=== PATIENT | male | born 1965 | race Caucasian/White ===

== ENCOUNTER 2019-11-16 15:03 | Observation (INO) | payer BC ==
[2019-11-16] MEDS ORDERED: SODIUM CHLORIDE 0.9% 2,000 ML IV STA (15:30)
[2019-11-16] MEDS ORDERED: LOPERAMIDE 2 MG CAP PO STA (15:34)
--- NOTE | 2019-11-16 15:42 | ED ---
General Adult HPI - General Chief complaint: Recheck/Abnormal Lab/Rx Stated complaint: SOB, syncope, Dehydration Time Seen by Provider: 11/16/19 15:16 Source: patient Mode of arrival: wheelchair Limitations: no limitations - History of Present Illness Initial comments: Patient is a 54-year-old male with history of Crohn's presenting to the emergency department with a chief complaint of diarrhea and dehydration. Patient reports a recent cosmetic procedure about 4 days ago and the following day he developed continuous diarrhea. He states this is more than his usual secondary to the Crohn's. Patient reports watery diarrhea with no color. He spoke to GI doctor who gave him Flagyl and Cipro. Patient is currently taking the medication with no improvement in symptoms. Patient had a total colectomy about 25 years ago so he does not retain fluids very well. She reports dehydration yesterday went to another ED where he was given fluids and disc harged. Patient reports the symptoms are exactly the same today denies any night sweats or chills. Denies hematuria, hematochezia or melena. Denies night sweats or chills. Denies recent international travels . He states that he has an ongoing Crohn's flareup for the last 10 years. - Related Data Allergies Allergy/AdvReac Type Severity Reaction Status Date / Time No Known Allergies Allergy Verified 11/16/19 15:04 Review of Systems ROS Statement: Those systems with pertinent positive or pertinent negative responses have been documented in the HPI. ROS Other: All systems not noted in ROS Statement are negative. Past Medical History Additional Past Medical History / Comment(s): ulcerative colitis, crohns, prostate cancer History of Any Multi-Drug Resistant Organisms: None Reported Past Surgical History: Prostate Surgery Additional Past Surgical History / Comment(s): collectomy, ileoanal pouch Past Psychological History: No Psychological Hx Reported Smoking Status: Never smoker Past Alcohol Use History: None Reported Past Drug Use History: None Reported General Exam Limitations: no limitations General appearance: alert, in no apparent distress Head exam: Present: atraumatic, normocephalic, normal inspection Eye exam: Present: normal appearance Pupils: Present: normal accommodation ENT exam: Present: normal exam, normal oropharynx, mucous membranes dry, TM's normal bilaterally, normal external ear exam Neck exam: Present: normal inspection Respiratory exam: Present: normal lung sounds bilaterally Cardiovascular Exam: Present: regular rate, normal rhythm, normal heart sounds GI/Abdominal exam: Present: soft. Absent: distended, tenderness Extremities exam: Present: normal inspection, full ROM Back exam: Present: normal inspection, full ROM Neurological exam: Present: alert, oriented X3 Psychiatric exam: Present: normal affect, normal mood Skin exam: Present: warm, dry, intact, normal color Course Vital Signs 11/16/19 11/16/19 15:05 16:56 Temperature 97.4 F L Pulse Rate 68 105 H Respiratory 18 Rate Blood Pressure 116/78 129/116 O2 Sat by Pulse 97 95 Oximetry Medical Decision Making - Medical Decision Making Patient is 54-year-old male with history of Crohn's presenting to emergency department with a chief complaint of abdominal pain. Patient had a colectomy so he is very prone to dehydration. He has profuse diarrhea for the last 3 days causing him to feel faint and dizzy. Yesterday he was given fluids in the ED but he developed continuous diarrhea after coming home. Today's Coumadin with exact same symptoms. CBC shows elevated hemoglobin 19.4. CMP shows poor renal function with increased BUN and creatinine. GFR 36. No prior laboratory results available for comparison. Patient was given 2 L of fluids in the ED and Imodium. Patient will be admitted for further medical management. Admitted physician is . Case discussed with Dr. Green. - Lab Data Result diagrams: 11/16/19 15:38 11/16/19 15:38 Lab Results 11/16/19 11/16/19 11/16/19 Range/Units 15:38 15:38 16:31 WBC 12.8 H (3.8-10.6) k/uL RBC 6.19 H (4.30-5.90) m/uL Hgb 19.4 H* (13.0-17.5) gm/dL Hct 56.0 H (39.0-53.0) % MCV 90.4 (80.0-100.0) fL MCH 31.3 (25.0-35.0) pg MCHC 34.7 (31.0-37.0) g/dL RDW 13.0 (11.5-15.5) % Plt Count 384 (150-450) k/uL Neutrophils % 75 % Lymphocytes % 15 % Monocytes % 5 % Eosinophils % 1 % Basophils % 3 % Neutrophils # 9.6 H (1.3-7.7) k/uL Lymphocytes # 2.0 (1.0-4.8) k/uL Monocytes # 0.6 (0-1.0) k/uL Eosinophils # 0.1 (0-0.7) k/uL Basophils # 0.4 H (0-0.2) k/uL Sodium 132 L (137-145) mmol/L Potassium 4.9 (3.5-5.1) mmol/L Chloride 99 (98-107) mmol/L Carbon Dioxide 15 L (22-30) mmol/L Anion Gap 18 mmol/L BUN 50 H (9-20) mg/dL Creatinine 2.28 H (0.66-1.25) mg/dL Est GFR (CKD-EPI)AfAm 36 (>60 ml/min/1.73 sqM) Est GFR (CKD-EPI)NonAf 31 (>60 ml/min/1.73 sqM) Glucose 178 H (74-99) mg/dL Calcium 9.5 (8.4-10.2) mg/dL Total Bilirubin 1.7 H (0.2-1.3) mg/dL AST 39 (17-59) U/L ALT 37 (4-49) U/L Alkaline Phosphatase 37 L (38-126) U/L Total Protein 8.7 H (6.3-8.2) g/dL Albumin 4.7 (3.5-5.0) g/dL Urine Color Yellow Urine Appearance Cloudy (Clear) Urine pH 5.5 (5.0-8.0) Ur Specific [place] 1.021 (1.001-1.035) Urine Protein 1+ H (Negative) Urine Glucose (UA) Negative (Negative) Urine Ketones Trace H (Negative) Urine Blood Trace H (Negative) Urine Nitrite Negative (Negative) Urine Bilirubin Negative (Negative) Urine Urobilinogen <2.0 (<2.0) mg/dL Ur Leukocyte Esterase Small H (Negative) Urine RBC 1 (0-5) /hpf Urine WBC 3 (0-5) /hpf Ur Squamous Epith Cells 2 (0-4) /hpf Urine Bacteria Rare H (None) /hpf Hyaline Casts 290 H (0-2) /lpf Granular Casts 6 (0) /lpf RBC Casts 1 (0) /lpf Urine Mucus Few H (None) /hpf Disposition Clinical Impression: Dehydration Disposition: ADMITTED IP TO THIS HOSP Condition: Stable Additional Instructions: She will be admitted Is patient prescribed a controlled substance at d/c from ED?: No Referrals: Sergey Handy MD [Primary Care Provider] - 1-2 days Time of Disposition: 18:19
[2019-11-16 15:48] LABS: Basophils # (A) 0.4 k/uL (0-0.2); Basophils % (A) 3 %; Eosinophils # (A) 0.1 k/uL (0-0.7); Eosinophils % (A) 1 %; Lymphocytes % (A) 15 %; MCH 31.3 pg (25.0-35.0); MCHC 34.7 g/dL (31.0-37.0); MCV 90.4 fL (80.0-100.0); Mean Platelet Volume 8.7; Monocytes # (A) 0.6 k/uL (0-1.0); Monocytes % (A) 5 %; Neutrophils # (A) 9.6 k/uL (1.3-7.7); Neutrophils % (A) 75 %; Platelet Count 384 k/uL (150-450); RBC 6.19 m/uL (4.30-5.90); WBC 12.8 k/uL (3.8-10.6)
[2019-11-16 15:58] LABS: Albumin 4.7 g/dL (3.5-5.0); Calcium 9.5 mg/dL (8.4-10.2); Total Bilirubin 1.7 mg/dL (0.2-1.3); Total Protein 8.7 g/dL (6.3-8.2)
[2019-11-16 15:59] LABS: HGB 19.4 gm/dL (13.0-17.5); Potassium 4.9 mmol/L (3.5-5.1)
[2019-11-16 17:14] LABS: Appearance,Urine Cloudy (Clear); Bacteria,Urine Rare /hpf; Bilirubin,Urine Negative (Negative); Blood,Urine Trace (Negative); Color,Urine Yellow; Glucose,Urine (UA) Negative (Negative); Granular Casts,Urine 6 /lpf (0); Hyaline Casts,Urine 290 /lpf (0-2); Ketones,Urine Trace (Negative); Leukocyte Esterase,Urine Small (Negative); Mucus,Urine Few /hpf; Nitrite,Urine Negative (Negative); PH, Urine 5.5 (5.0-8.0); Protein,Urine 1+ (Negative); RBC,Urine 1 /hpf (0-5); Red Blood Cell Casts,Urine 1 /lpf (0); Specific Gravity,Urine 1.021 (1.001-1.035); Squamous Epithelial Cell,Urine 2 /hpf (0-4); Urobilinogen,Urine <2.0 mg/dL (<2.0); WBC,Urine 3 /hpf (0-5)
[2019-11-16] MEDS ORDERED: ONDANSETRON 4 MG/2 ML VIAL IVP PRN (18:19)
[2019-11-16] MEDS ORDERED: NALOXONE 0.4 MG/ML 1 ML VIAL IV PRN (18:19)
[2019-11-16] MEDS ORDERED: SODIUM CHLORIDE 0.9% 1,000 ML IV SCH (18:30)
[2019-11-16] MEDS ORDERED: PANTOPRAZOLE 40 MG TABLET PO PRN (22:40)
--- NOTE | 2019-11-16 22:49 | P.HPIM ---
History of Present Illness H&P Date: 11/16/19 Chief Complaint: Diarrhea History of presenting complaint: This is a pleasant 54-year-old patient of Dr. Sergey Handy. Patient's a diagnosis of Crohn's disease. Had a total colectomy about 25 years ago. Her baseline goes from anywhere from 10-15 bowel movements a day. Normally has no blood in the stool. Her baseline is some bloating. Patient is followed with Dr. Dia the personnel adviser out of the area. Patient last Friday underwent to have some cosmetic surgery to include liposuction. Did not receive any systemic drugs. Following day started having increasing diarrhea every half an hour. A bit yellow in color. No abdominal pain. No fever no chills. Did groggily ER interval district was given IV fluids and sent home yesterday. Diarrhea persisted has decided to present to. Feeling weak tired and rundown. Patient is found. Acute renal failure in the ER and admitted for the same. Review of systems: GEN.: Weak and tired EYES: None HEENT: None NECK: None RESPIRATORY: None CARDIOVASCULAR: None GASTROINTESTINAL: As above GENITOURINARY: None MUSCULOSKELETAL: None LYMPHATICS: None HEMATOLOGICAL: None PSYCHIATRY: None NEUROLOGICAL: None Past medical history to include: Crohn's disease with total colectomy or 25 years ago, prostate cancer Past surgical history to include prostate surgery, total colectomy, ileoanal pouch Social history: Lives alone. Doesn't smoke or drink alcohol Family history: Reviewed, noncontributory to presentation Physical examination: VITAL SIGNS: 97.4, 68, 18, 11 6/78, 97% on room air GENERAL: BMI 24.3, laying bed awake. EYES: Pupils equal. Conjunctiva normal. HEENT: External appearance of nose and ears normal, oral cavity dry mucous membranes. NECK: JVD not raised; masses not palpable. HEART: First and second heart sounds are normal; no edema. LUNGS: Respiratory rate normal; clear to auscultation. ABDOMEN: Soft, slightly bloated, nontender, liver spleen not palpable, no masses palpable. PSYCH: Alert and oriented x3; mood and affect normal. NEUROLOGICAL: Cranial nerves grossly intact; no facial asymmetry, power and sensation grossly intact. LYMPHATICS: No lymph nodes palpable in the axilla and neck INVESTIGATIONS, reviewed in the clinical context: White count 12.8 hemoglobin 19.4. History 84 by, 15 bun 50 creatine 2.2 8 Assessment: -Acute on chronic diarrhea in a patient with a baseline is anywhere from 10-15 bowel movements a day. Had go to the hospital for cosmetic surgery. 3 to rule out superimposed C. diff required at the medical facility. On parasites to be checked out. -Acute renal failure possibly prerenal -Metabolic acidosis -Chronic Crohn's disease with total colectomy Plan: We'll send off stool for C. diff and ova and parasites. Start the patient of 20 0 mL of fluids. Add bicarbonate to the drip. Lovenox for DVT prophylaxis. Put the patient on clear liquid diet. Care was discussed with the patient question were answered. Past Medical History Additional Past Medical History / Comment(s): ulcerative colitis, crohns, prostate cancer History of Any Multi-Drug Resistant Organisms: None Reported Past Surgical History: Prostate Surgery Additional Past Surgical History / Comment(s): collectomy, ileoanal pouch Past Anesthesia/Blood Transfusion Reactions: No Reported Reaction Past Psychological History: No Psychological Hx Reported Smoking Status: Never smoker Past Alcohol Use History: None Reported Past Drug Use History: None Reported Medications and Allergies Home Medications Medication Instructions Recorded Confirmed Type Ciprofloxacin HCl [Cipro] 500 mg PO DAILY 11/16/19 11/16/19 History Citalopram Hydrobromide 40 mg PO DAILY 11/16/19 11/16/19 History [Citalopram HBr] Omeprazole [PriLOSEC] 20 mg PO DAILY PRN 11/16/19 11/16/19 History metroNIDAZOLE [Flagyl] 500 mg PO TID 11/16/19 11/16/19 History Allergies Allergy/AdvReac Type Severity Reaction Status Date / Time No Known Allergies Allergy Verified 11/16/19 18:49 Physical Exam Vitals: Vital Signs Temp Pulse Pulse Resp BP BP Pulse Ox 11/16/19 19:40 97.0 F L 95 18 123/85 96 11/16/19 18:40 98.0 F 104 H 18 128/88 98 11/16/19 16:56 105 H 129/116 95 11/16/19 15:05 97.4 F L 68 18 116/78 97 Intake and Output 11/16/19 11/16/19 11/16/19 06:59 14:59 22:59 Other: Voiding Method Toilet Weight 81.193 kg Results CBC & Chem 7: 11/16/19 15:38 11/16/19 15:38 Labs: Abnormal Lab Results - Last 24 Hours (Table) 11/16/19 11/16/19 11/16/19 Range/Units 15:38 15:38 16:31 WBC 12.8 H (3.8-10.6) k/uL RBC 6.19 H (4.30-5.90) m/uL Hgb 19.4 H* (13.0-17.5) gm/dL Hct 56.0 H (39.0-53.0) % Neutrophils # 9.6 H (1.3-7.7) k/uL Basophils # 0.4 H (0-0.2) k/uL Sodium 132 L (137-145) mmol/L Carbon Dioxide 15 L (22-30) mmol/L BUN 50 H (9-20) mg/dL Creatinine 2.28 H (0.66-1.25) mg/dL Glucose 178 H (74-99) mg/dL Total Bilirubin 1.7 H (0.2-1.3) mg/dL Alkaline Phosphatase 37 L (38-126) U/L Total Protein 8.7 H (6.3-8.2) g/dL Urine Protein 1+ H (Negative) Urine Ketones Trace H (Negative) Urine Blood Trace H (Negative) Ur Leukocyte Esterase Small H (Negative) Urine Bacteria Rare H (None) /hpf Hyaline Casts 290 H (0-2) /lpf Urine Mucus Few H (None) /hpf Thrombosis Risk Factor Assmnt - Choose All That Apply Each Factor Represents 1 point: Age 41-60 years Thrombosis Risk Factor Assessment Total Risk Factor Score: 1 Thrombosis Risk Factor Assessment Level: Low Risk
[2019-11-17] MEDS: SODIUM CHLORIDE 0.9% 1,000 ML IV SCH ×6 (00:01→23:16)
[2019-11-17] MEDS: LOPERAMIDE 2 MG CAP PO PRN ×4 (00:04→12:20)
[2019-11-17] MEDS: CITALOPRAM HYDROBROMIDE 20 MG TAB PO SCH (08:22)
[2019-11-17 10:12] LABS: Basophils # (A) 0.1 k/uL (0-0.2); Basophils % (A) 1 %; Eosinophils # (A) 0.3 k/uL (0-0.7); Eosinophils % (A) 3 %; HCT 46.4 % (39.0-53.0); Lymphocytes # (A) 3.2 k/uL (1.0-4.8); Lymphocytes % (A) 32 %; MCH 31.4 pg (25.0-35.0); MCHC 33.8 g/dL (31.0-37.0); MCV 92.9 fL (80.0-100.0); Mean Platelet Volume 8.1; Monocytes # (A) 0.9 k/uL (0-1.0); Monocytes % (A) 8 %; Neutrophils # (A) 5.5 k/uL (1.3-7.7); Neutrophils % (A) 54 %; Platelet Count 301 k/uL (150-450); RBC 4.99 m/uL (4.30-5.90); RDW 13.1 % (11.5-15.5); WBC 10.3 k/uL (3.8-10.6)
[2019-11-17 10:15] LABS: African American GFR (CKD) >90 (>60 ml/min/1.73 sqM); Anion Gap 9 mmol/L; Blood Urea Nitrogen 29 mg/dL (9-20); Calcium 8.3 mg/dL (8.4-10.2); Carbon Dioxide 19 mmol/L (22-30); Chloride 109 mmol/L (98-107); Glucose 109 mg/dL (74-99); Non-African American GFR(CKD) 80 (>60 ml/min/1.73 sqM); Potassium 4.1 mmol/L (3.5-5.1); Sodium 137 mmol/L (137-145)
[2019-11-17 10:16] LABS: HGB 15.7 gm/dL (13.0-17.5)
[2019-11-17] MEDS: CIPROFLOXACIN HCL 500 MG TAB PO SCH (12:19)
[2019-11-17] MEDS: metroNIDAZOLE 500 MG TAB PO SCH ×3 (12:19→20:42)
[2019-11-17] MEDS: ENOXAPARIN 40 MG/0.4 ML SYRINGE SQ SCH ×2 (20:42)
--- NOTE | 2019-11-17 23:53 | P.PN ---
Progress Note - Text Progress Note Date: 11/17/19 Chief Complaint: Diarrhea History of presenting complaint: This is a pleasant 54-year-old patient of Dr. Sergey Handy. Patient's a diagnosis of Crohn's disease. Had a total colectomy about 25 years ago. Her baseline goes from anywhere from 10-15 bowel movements a day. Normally has no blood in the stool. Her baseline is some bloating. Patient is followed with Dr. Dia the still tender out of the area. Patient last Raghavendra underwent to have some cosmetic surgery to include liposuction. Did not receive any systemic drugs. Following day started having increasing diarrhea every half an hour. A bit yellow in color. No abdominal pain. No fever no chills. Did groggily ER interval district was given IV fluids and sent home yesterday. Diarrhea persisted has decided to present to. Feeling weak tired and rundown. Patient is found. Acute renal failure in the ER and admitted for the same.admitted with acute diarrhea and acute renal failure.patient chronically on ciprofloxacin and Flagyl. today-tolerating a clear liquid diet. Wanting food. No abdominal pain. No nausea vomiting. No fever. Diarrhea still present. Review of systems: Was done for constitutional, cardiovascular, GI, pulmonary. relevant finding as above Active Medications Ciprofloxacin (Cipro) [address] [facility] Last Admin: 11/17/19 12:19 Dose: 500 mg Documented by: Citalopram Hydrobromide (Celexa) [address] [facility] Last Admin: 11/17/19 08:22 Dose: 40 mg Documented by: Enoxaparin Sodium (Lovenox) [address] [facility] Last Admin: 11/17/19 20:42 Dose: 40 mg Documented by: Sodium Chloride (Saline 0.9%) 1,000 mls @ 200 mls/hr IV .Q5H [facility] Last Admin: 11/17/19 23:16 Dose: Not Given Documented by: Loperamide HCl (Imodium) 2 mg PO Q2HR PRN PRN Reason: Loose Stool Last Admin: 11/17/19 12:20 Dose: 2 mg Documented by: Metronidazole (Flagyl) [address] [facility] Last Admin: 11/17/19 20:42 Dose: 500 mg Documented by: Naloxone HCl (Narcan) 0.2 mg IV Q2M PRN PRN Reason: Opioid Reversal Ondansetron HCl (Zofran) 4 mg IVP Q8HR PRN PRN Reason: Nausea And Vomiting Pantoprazole Sodium (Protonix) 40 mg PO DAILY PRN PRN Reason: Pain Physical examination: VITAL SIGNS:96.9, 82, 18, 110/73, 97% on room air GENERAL: laying in bed, not in distress. EYES: Pupils equal. Conjunctiva normal. HEENT: External appearance of nose and ears normal, oral cavity dry mucous membranes. NECK: JVD not raised; masses not palpable. HEART: First and second heart sounds are normal; no edema. LUNGS: Respiratory rate normal; clear to auscultation. ABDOMEN: Soft, slightly bloated, nontender, liver spleen not palpable, no masses palpable. PSYCH: Alert and oriented x3; mood and affect normal. INVESTIGATIONS, reviewed in the clinical context: White count 10.3 hemoglobin 15.7 potassium 4.1 bun 29 creatinine 1.04 bicarb 19 White count 12.8 hemoglobin 19.4. History 84 by, 15 bun 50 creatine 2.2 8 negative for C. diff. Negative for ova and parasites Assessment: -Acute on chronic diarrhea in a patient with a baseline is anywhere from 10-15 bowel movements a day. Had go to the hospital for cosmetic surgery. 3 to rule out superimposed C. diff required at the medical facility. ova parasites to be checked out., improving -Acute renal failure possibly prerenal, improving -Metabolic acidosis -Chronic Crohn's disease with total colectomy Plan: patient is improving. Another 24 hours of IV fluids. Care was discussed with the patient.she to full liquids in the morning and advance as tolerated. Repeat labs in the morning.
[2019-11-18] MEDS: PSYLLIUM HUSK 100% 6 GM PACKET PO SCH ×2 (00:05→08:41)
[2019-11-18] MEDS: SODIUM CHLORIDE 0.9% 1,000 ML IV SCH ×3 (03:59→15:43)
[2019-11-18 07:57] LABS: African American GFR (CKD) >90 (>60 ml/min/1.73 sqM); Anion Gap 5 mmol/L; Blood Urea Nitrogen 13 mg/dL (9-20); Calcium 7.3 mg/dL (8.4-10.2); Carbon Dioxide 20 mmol/L (22-30); Chloride 111 mmol/L (98-107); Glucose 104 mg/dL (74-99); Magnesium 1.6 mg/dL (1.6-2.3); Non-African American GFR(CKD) >90 (>60 ml/min/1.73 sqM); Sodium 136 mmol/L (137-145)
[2019-11-18] MEDS: CIPROFLOXACIN HCL 500 MG TAB PO SCH (08:41)
[2019-11-18] MEDS: CITALOPRAM HYDROBROMIDE 20 MG TAB PO SCH (08:41)
[2019-11-18] MEDS: metroNIDAZOLE 500 MG TAB PO SCH (08:41)
[2019-11-18 15:25] VITALS: BP 131/78; PULSE 89; RESP 18; TEMP 97.3
--- NOTE | 2019-11-21 23:55 | P.DS ---
Providers Date of admission: 11/16/19 17:43 Expected date of discharge: 11/18/19 Attending physician: Abdirahman Oakley Primary care physician: Sergey Handy [facility] Course: Chief Complaint: Diarrhea History of presenting complaint: pleasant 54-year-old patient of Dr. Sergey Handy. diagnosis of Crohn's disease. Had total colectomy about 25 years ago. Her baseline goes from anywhere from 10-15 bowel movements a day. Normally has no blood in the stool. baseline is some bloating. Patient is followed with Dr. Ayon the director of corporate strategy out of the area. Patient last Friday underwent to have some cosmetic surgery to include liposuction. Did not receive any systemic drugs. Following day started having increasing diarrhea every half an hour. A bit yellow in color. No abdominal pain. No fever no chills. went to [facility] ER , was given IV fluids and sent home yesterday. Diarrhea persisted has decided to present here.. Feeling weak tired and rundown. . Hospital course: Diagnosed with Acute renal failure .patient chronically on ciprofloxacin and Flagyl.given IV fluids. responded well. Managed empirically. Initially made nothing by mouth then diet was advanced.creatinine went from 2.28 down to 0.60 by discharge today-feeling well. Tolerated diet. Diarrhea back to baseline.. Physical examination: VITAL SIGNS:37.3, 89, 18, 131/78, 98% on room air GENERAL: laying in bed, not in distress. EYES: Pupils equal. Conjunctiva normal. HEENT: External appearance of nose and ears normal, oral cavity dry mucous membranes. NECK: JVD not raised; masses not palpable. HEART: First and second heart sounds are normal; no edema. LUNGS: Respiratory rate normal; clear to auscultation. ABDOMEN: Soft, slightly bloated, nontender, liver spleen not palpable, no masses palpable. PSYCH: Alert and oriented x3; mood and affect normal. INVESTIGATIONS, reviewed in the clinical context: creatinine 0.6 Condition testing White count 12.8 hemoglobin 19.4. History 84 by, 15 bun 50 creatine 2.2 8 negative for C. diff. Negative for ova and parasites Assessment: -Acute diarrhea likely viral -Acute renal failure possibly prerenal, improved -Metabolic acidosis -Chronic Crohn's disease with total colectomy, with chronic diarrhea disposition: Home Patient Condition at Discharge: Stable Plan - Discharge Summary Discharge Rx Participant: No New Discharge Prescriptions: New Psyllium Husk 100% [Metamucil Packet] 6 gm PO BID #60 packet Continue Omeprazole [PriLOSEC] 20 mg PO DAILY PRN PRN Reason: Pain Citalopram Hydrobromide [Citalopram HBr] 40 mg PO DAILY Ciprofloxacin HCl [Cipro] 500 mg PO DAILY metroNIDAZOLE [Flagyl] 500 mg PO TID Discharge Medication List Ciprofloxacin HCl [Cipro] 500 mg PO DAILY 11/16/19 [History] Citalopram Hydrobromide [Citalopram HBr] 40 mg PO DAILY 11/16/19 [History] Omeprazole [PriLOSEC] 20 mg PO DAILY PRN 11/16/19 [History] metroNIDAZOLE [Flagyl] 500 mg PO TID 11/16/19 [History] Psyllium Husk 100% [Metamucil Packet] 6 gm PO BID #60 packet 11/18/19 [Rx] Follow up Appointment(s)/Referral(s): dr Nany [Other] - 1 Week Sergey Handy MD [Primary Care Provider] - 1-2 days Patient Instructions/Handouts: Crohn Disease (DC) Activity/Diet/Wound Care/Special Instructions: Soft bland diet Activity as tolerated Discharge Disposition: HOME SELF-CARE
== END 2019-11-18 16:30 | disposition home or self-care (01) ==
LOC: EC 15:03 → 6NMEDSUR 17:43 → INTOOBSV 17:43
PROVIDERS: ADMIT Hospitalist; ATTEND Hospitalist
DX: N17.9 Acute kidney failure, unspecified (principal); E87.2 Acidosis; K50.90 Crohn's disease, unspecified, without complications; Z85.46 Personal history of malignant neoplasm of prostate; Z90.49 Acquired absence of other specified parts of digestive tract; Z79.2 Long term (current) use of antibiotics; Z79.899 Other long term (current) drug therapy
CPT/HCPCS: 96361 ×4; 96372; 96360; 99284; 36415; 80053; 80048 ×2; 83735; 85025 ×2; 81001; 87324; 87329; 87328; G0378 ×3; J1650

== ENCOUNTER → 2020-06-28 | Outpatient (CLI) | payer BC ==
[2020-06-28 14:33] LABS: Basophils # (A) 0.1 k/uL (0-0.2); Basophils % (A) 1 %; Eosinophils # (A) 0.3 k/uL (0-0.7); Eosinophils % (A) 3 %; HCT 50.5 % (39.0-53.0); Lymphocytes % (A) 23 %; MCH 29.4 pg (25.0-35.0); MCHC 31.6 g/dL (31.0-37.0); MCV 93.3 fL (80.0-100.0); Mean Platelet Volume 7.3; Monocytes # (A) 0.6 k/uL (0-1.0); Monocytes % (A) 7 %; Neutrophils # (A) 5.6 k/uL (1.3-7.7); Neutrophils % (A) 64 %; Platelet Count 306 k/uL (150-450); RBC 5.42 m/uL (4.30-5.90); RDW 13.4 % (11.5-15.5); WBC 8.7 k/uL (3.8-10.6)
[2020-06-28 20:04] LABS: African American GFR (CKD) 109.5 (60.0-200.0); Anion Gap 5.9 mmol/L (4.00-12.00); BUN/Creat Ratio 16.67 Ratio (12.00-20.00); Carbon Dioxide 29.1 mmol/L (21.6-31.8); Non-African American GFR(CKD) 94.5 (60.0-200.0); Potassium 4.5 mmol/L (3.5-5.5)
== END | disposition home or self-care (01) ==
LOC: LABWHC1 13:27
PROVIDERS: ATTEND Colon & Rectal Surgery
DX: K91.850 Pouchitis (principal)
CPT/HCPCS: 36415; 80048; 85025; 86850; 86870; 86880; 86900; 86901

== ENCOUNTER → 2021-07-11 | Outpatient (CLI) | payer BC | END | disposition home or self-care (01) | LOC: LABWHC1 14:33 | PROVIDERS: ATTEND Internal Medicine | DX: K52.9 Noninfective gastroenteritis and colitis, unspecified (principal) | CPT/HCPCS: 36415; 82542; 82657; 86140 ==

== ENCOUNTER → 2021-11-13 | Outpatient (CLI) | payer BC | END | disposition home or self-care (01) | LOC: LABWHC1 14:03 | PROVIDERS: ATTEND Internal Medicine | DX: K52.9 Noninfective gastroenteritis and colitis, unspecified (principal) | CPT/HCPCS: 36415 ==

== ENCOUNTER → 2021-11-19 | Outpatient (CLI) | payer BC ==
--- NOTE | 2021-11-19 11:30 | US ---
EXAMINATION TYPE: US abdomen complete DATE OF EXAM: 11/19/2021 COMPARISON: NONE CLINICAL HISTORY: K52.9 Noninfective gastroenteritis and colitis, un. Elevated liver enzymes EXAM MEASUREMENTS: Liver Length: 14.1 cm Gallbladder Wall: 0.26 cm CBD: 0.27 cm Spleen: 10.8 x 4.1 cm Right Kidney: 12.2 x 4.9 x 6.1 cm Left Kidney: 11.9 x 6.1 x 4.8 cm Pancreas: Limited visualization. Liver: Slightly increased attenuation Gallbladder: Gallbladder may be slightly contracted with irregular appearing wall, although wall [place] surement is wnl. Evidence for sonographic Acosta's sign: No CBD: wnl Spleen: wnl Right Kidney: wnl Left Kidney: wnl Upper IVC: wnl Abd Aorta: wnl The visualized liver is heterogeneously hyperechoic. Evaluation for focal masses suboptimal due to th e heterogeneity. No surrounding ascites. The intrahepatic portion of the IVC and visualized abdominal aorta are within normal limits. There is no evidence of shadowing mobile cholelithiasis. Slightly c ontracted gallbladder. Common bile duct is unremarkable. The visualized portions of the pancreas is slightly heterogeneous. The spleen measures within normal limits. Kidneys are symmetric and free of hydronephrosis. No renal lesions are seen. IMPRESSION: No acute findings are evident. Heterogeneous hyperechoic appearance of liver is consisten t with diffuse fatty infiltration and/or underlying hepatocellular disease.
== END | disposition home or self-care (01) ==
LOC: RADUSWWP 09:11
PROVIDERS: ATTEND Internal Medicine
DX: R93.2 Abnormal findings on diagnostic imaging of liver and biliary tract (principal)
CPT/HCPCS: 76700

== ENCOUNTER → 2022-07-02 | Outpatient (CLI) | payer BC ==
[2022-07-02 18:08] LABS: Basophils # (A) 0.07 X 10*3/uL (0.00-0.10); Basophils % (A) 1.2 %; Eosinophils # (A) 0.17 X 10*3/uL (0.04-0.35); Eosinophils % (A) 2.8 %; HCT 48.5 % (39.6-50.0); Immature Grans, Automated 0.7 %; Lymphocytes # (A) 1.97 X 10*3/uL (0.90-5.00); Lymphocytes % (A) 32.7 %; Mean Platelet Volume 10.2 fL (9.5-12.2); Monocytes # (A) 0.78 X 10*3/uL (0.20-1.00); Monocytes % (A) 12.9 %; NRBC Per 100 WBC 0 /100 WBCS (0.0-0.0); Neutrophils % (A) 49.7 %; Platelet Count 303 X 10*3/uL (140-440); RBC 5.16 X 10*6/uL (4.40-5.60); RDW 14.6 % (11.5-14.5); WBC 6.03 X 10*3/uL (4.50-10.00)
[2022-07-02 18:35] LABS: African American GFR (CKD) 95.1 (60.0-200.0); Albumin 4.5 g/dL (3.8-4.9); Albumin/Globulin Ratio 1.5 (1.60-3.17); Anion Gap 12.1 mmol/L (10.00-18.00); C Reactive Protein 0.5 mg/dL (0.00-0.80); Calcium 9.8 mg/dL (8.7-10.3); Carbon Dioxide 24.9 mmol/L (20.0-27.5); Total Bilirubin 0.9 mg/dL (0.30-1.20); Total Protein 7.5 g/dL (6.2-8.2)
[2022-07-02 18:46] LABS: Erythrocyte Sedimentation Rate 4 mm/Hr (0-20)
== END | disposition home or self-care (01) ==
LOC: LABWHC1 10:40
PROVIDERS: ATTEND Internal Medicine
DX: K52.9 Noninfective gastroenteritis and colitis, unspecified (principal)
CPT/HCPCS: 36415; 80053; 83993; 85025; 85652; 86140; 87324

== ENCOUNTER 2022-08-10 04:14 | Emergency (ER) | payer BC ==
[2022-08-10 04:24] VITALS: TEMP 97.8
[2022-08-10] MEDS ORDERED: MORPHINE SULFATE 4 MG/ML SYRINGE IV STA (04:39)
[2022-08-10] MEDS ORDERED: SODIUM CHLORIDE 0.9% 1,000 ML IV STA (04:39)
[2022-08-10] MEDS ORDERED: PANTOPRAZOLE 40 MG/10 ML VIAL IVP STA (04:39)
[2022-08-10] MEDS ORDERED: ONDANSETRON 4 MG/2 ML VIAL IVP STA (04:39)
--- NOTE | 2022-08-10 04:53 | ED ---
Abdominal Pain HPI - General Chief Complaint: Abdominal Pain Stated Complaint: Abd Pain Time Seen by Provider: 08/10/22 04:38 Source: patient, family, RN notes reviewed, old records reviewed Mode of arrival: ambulatory Limitations: no limitations - History of Present Illness Initial Comments: This is a 57-year-old male DF for evaluation patient presents for severe abdominal pain. History of severe colitis with history of severe abdominal pain and multiple surgeries. Patient recently all of anti-inflammatory secondary to not being able to see his surgeon. Patient has significant nausea vomiting tonight multiple episodes. Began after dinner tonight. No recent surgery MD Complaint: abdominal pain -: hour(s) Location: diffuse, epigastric Radiation: none Migration to: no migration Severity: severe Severity scale (1-10): 10 Quality: stabbing, aching Consistency: constant Improves With: nothing Worsens With: nothing Associated Symptoms: nausea, vomiting Treatments Prior to Arrival: other (0) - Related Data Home Medications Medication Instructions Recorded Confirmed Ciprofloxacin HCl [Cipro] 500 mg PO DAILY 11/16/19 11/16/19 Citalopram Hydrobromide 40 mg PO DAILY 11/16/19 11/16/19 [Citalopram HBr] Omeprazole [PriLOSEC] 20 mg PO DAILY PRN 11/16/19 11/16/19 metroNIDAZOLE [Flagyl] 500 mg PO TID 11/16/19 11/16/19 Previous Rx's Medication Instructions Recorded Psyllium Husk 100% [Metamucil 6 gm PO BID #60 packet 11/18/19 Packet] Allergies Allergy/AdvReac Type Severity Reaction Status Date / Time No Known Allergies Allergy Verified 08/10/22 04:24 Review of Systems ROS Statement: Those systems with pertinent positive or pertinent negative responses have been documented in the HPI. ROS Other: All systems not noted in ROS Statement are negative. Past Medical History Additional Past Medical History / Comment(s): ulcerative colitis, crohns, prostate cancer History of Any Multi-Drug Resistant Organisms: None Reported Past Surgical History: Prostate Surgery Additional Past Surgical History / Comment(s): collectomy, ileoanal pouch Past Anesthesia/Blood Transfusion Reactions: No Reported Reaction Past Psychological History: No Psychological Hx Reported Smoking Status: Former smoker Past Alcohol Use History: None Reported Past Drug Use History: None Reported General Exam Limitations: no limitations General appearance: alert, in no apparent distress Head exam: Present: atraumatic, normocephalic, normal inspection Eye exam: Present: normal appearance, PERRL, EOMI. Absent: scleral icterus, conjunctival injection, periorbital swelling ENT exam: Present: normal exam, mucous membranes moist Neck exam: Present: normal inspection. Absent: tenderness, meningismus, lymphadenopathy Respiratory exam: Present: normal lung sounds bilaterally. Absent: respiratory distress, wheezes, rales, rhonchi, stridor Cardiovascular Exam: Present: normal rhythm, tachycardia, normal heart sounds. Absent: systolic murmur, diastolic murmur, rubs, gallop, clicks GI/Abdominal exam: Present: soft, distended, tenderness, guarding, normal bowel sounds. Absent: rebound, rigid Extremities exam: Present: normal inspection, full ROM, normal capillary refill. Absent: tenderness, pedal edema, joint swelling, calf tenderness Back exam: Present: normal inspection Neurological exam: Present: alert, oriented X3, CN II-XII intact Psychiatric exam: Present: normal affect, normal mood Skin exam: Present: warm, dry, intact, normal color. Absent: rash Course Vital Signs 08/10/22 04:19 Temperature 97.8 F Pulse Rate 107 H Respiratory 22 Rate Blood Pressure 127/93 O2 Sat by Pulse 95 Oximetry - Reevaluation(s) Reevaluation #1: 08/10/22 05:55 Medical record is reviewed Reevaluation #2: 08/10/22 06:39 Patient's pain is controlled here in the ER Reevaluation #3: 08/10/22 06:39 Patient informed of results questions answered feels improved and is okay for discharge Medical Decision Making - Medical Decision Making 57 male to the ER for evaluation patient presents today for evaluation of abdominal pain with history of colitis and multiple surgeries. Normal computed tomography scan here in the ER feeling much improved and patient can be discharged home - Lab Data Result diagrams: 08/10/22 04:42 08/10/22 04:42 Lab Results 08/10/22 08/10/22 08/10/22 Range/Units 04:42 04:42 04:42 WBC 12.0 H (3.8-10.6) k/uL RBC 5.58 (4.30-5.90) m/uL Hgb 17.1 (13.0-17.5) gm/dL Hct 52.8 (39.0-53.0) % MCV 94.5 (80.0-100.0) fL MCH 30.6 (25.0-35.0) pg MCHC 32.4 (31.0-37.0) g/dL RDW 13.6 (11.5-15.5) % Plt Count 330 (150-450) k/uL MPV 7.8 Neutrophils % 80 % Lymphocytes % 11 % Monocytes % 6 % Eosinophils % 1 % Basophils % 2 % Neutrophils # 9.5 H (1.3-7.7) k/uL Lymphocytes # 1.3 (1.0-4.8) k/uL Monocytes # 0.7 (0-1.0) k/uL Eosinophils # 0.1 (0-0.7) k/uL Basophils # 0.2 (0-0.2) k/uL PT 10.2 (9.0-12.0) sec INR 0.9 (<1.2) APTT 24.0 (22.0-30.0) sec Sodium 140 (137-145) mmol/L Potassium 4.6 (3.5-5.1) mmol/L Chloride 101 (98-107) mmol/L Carbon Dioxide 25 (22-30) mmol/L Anion Gap 14 mmol/L BUN 13 (9-20) mg/dL Creatinine 1.04 (0.66-1.25) mg/dL Est GFR (CKD-EPI)AfAm >90 (>60 ml/min/1.73 sqM) Est GFR (CKD-EPI)NonAf 79 (>60 ml/min/1.73 sqM) Glucose 144 H (74-99) mg/dL Plasma Lactic Acid Eder (0.7-2.0) mmol/L Calcium 9.9 (8.4-10.2) mg/dL Total Bilirubin 0.9 (0.2-1.3) mg/dL AST 23 (17-59) U/L ALT 29 (4-49) U/L Alkaline Phosphatase 56 (38-126) U/L Total Protein 7.8 (6.3-8.2) g/dL Albumin 4.8 (3.5-5.0) g/dL Amylase 62 (30-110) U/L Lipase 56 (23-300) U/L 08/10/22 Range/Units 04:42 WBC (3.8-10.6) k/uL RBC (4.30-5.90) m/uL Hgb (13.0-17.5) gm/dL Hct (39.0-53.0) % MCV (80.0-100.0) fL MCH (25.0-35.0) pg MCHC (31.0-37.0) g/dL RDW (11.5-15.5) % Plt Count (150-450) k/uL MPV Neutrophils % % Lymphocytes % % Monocytes % % Eosinophils % % Basophils % % Neutrophils # (1.3-7.7) k/uL Lymphocytes # (1.0-4.8) k/uL Monocytes # (0-1.0) k/uL Eosinophils # (0-0.7) k/uL Basophils # (0-0.2) k/uL PT (9.0-12.0) sec INR (<1.2) APTT (22.0-30.0) sec Sodium (137-145) mmol/L Potassium (3.5-5.1) mmol/L Chloride (98-107) mmol/L Carbon Dioxide (22-30) mmol/L Anion Gap mmol/L BUN (9-20) mg/dL Creatinine (0.66-1.25) mg/dL Est GFR (CKD-EPI)AfAm (>60 ml/min/1.73 sqM) Est GFR (CKD-EPI)NonAf (>60 ml/min/1.73 sqM) Glucose (74-99) mg/dL Plasma Lactic Acid Eder 1.4 (0.7-2.0) mmol/L Calcium (8.4-10.2) mg/dL Total Bilirubin (0.2-1.3) mg/dL AST (17-59) U/L ALT (4-49) U/L Alkaline Phosphatase (38-126) U/L Total Protein (6.3-8.2) g/dL Albumin (3.5-5.0) g/dL Amylase (30-110) U/L Lipase (23-300) U/L - Radiology Data Radiology results: report reviewed (CT of the abdomen and pelvis is negative for acute disease), image reviewed Disposition Clinical Impression: Abdominal pain, Ruptured ectopic Disposition: HOME SELF-CARE Condition: Good Instructions (If sedation given, give patient instructions): Abdominal Pain (ED) Is patient prescribed a controlled substance at d/c from ED?: No Referrals: Sergey Handy MD [Primary Care Provider] - 1-2 days Time of Disposition: 06:30
[2022-08-10 05:13] LABS: Basophils # (A) 0.2 k/uL (0-0.2); Basophils % (A) 2 %; Eosinophils # (A) 0.1 k/uL (0-0.7); Eosinophils % (A) 1 %; HCT 52.8 % (39.0-53.0); HGB 17.1 gm/dL (13.0-17.5); Lymphocytes # (A) 1.3 k/uL (1.0-4.8); Lymphocytes % (A) 11 %; MCH 30.6 pg (25.0-35.0); MCHC 32.4 g/dL (31.0-37.0); MCV 94.5 fL (80.0-100.0); Mean Platelet Volume 7.8; Monocytes # (A) 0.7 k/uL (0-1.0); Monocytes % (A) 6 %; Neutrophils # (A) 9.5 k/uL (1.3-7.7); Neutrophils % (A) 80 %; Platelet Count 330 k/uL (150-450); RBC 5.58 m/uL (4.30-5.90); RDW 13.6 % (11.5-15.5)
[2022-08-10 05:23] LABS: ALT 29 U/L (4-49); AST 23 U/L (17-59); African American GFR (CKD) >90 (>60 ml/min/1.73 sqM); Albumin 4.8 g/dL (3.5-5.0); Alkaline Phosphatase 56 U/L (38-126); Amylase 62 U/L (30-110); Anion Gap 14 mmol/L; Blood Urea Nitrogen 13 mg/dL (9-20); Calcium 9.9 mg/dL (8.4-10.2); Carbon Dioxide 25 mmol/L (22-30); Chloride 101 mmol/L (98-107); Glucose 144 mg/dL (74-99); Lipase 56 U/L (23-300); Non-African American GFR(CKD) 79 (>60 ml/min/1.73 sqM); Potassium 4.6 mmol/L (3.5-5.1); Sodium 140 mmol/L (137-145); Total Bilirubin 0.9 mg/dL (0.2-1.3); Total Protein 7.8 g/dL (6.3-8.2)
[2022-08-10 05:28] LABS: INR 0.9 (<1.2); Prothrombin Time 10.2 sec (9.0-12.0)
--- NOTE | 2022-08-10 06:04 | CT ---
EXAMINATION TYPE: CT abdomen pelvis w con DATE OF EXAM: 08/10/2022 COMPARISON: None HISTORY: pain. history of prostate CA, collectomy and ileoanal pouch CT DLP: mGycm Automated exposure control for dose reduction was used. CONTRAST: Performed with IV Contrast, patient injected with 100ml mL of Isovue 300. There is mild subsegmental atelectasis at the lung bases. Heart size is normal. No pericardial effusi on. Liver spleen and stomach pancreas appear intact. The bile duct are not dilated. Gallbladder appea rs normal. There is no adrenal mass. Kidneys show satisfactory contrast opacification. There is no hydronephrosi s. Delayed images show normal renal excretion. No retroperitoneal adenopathy. Ureters are not dilated . Bladder distends smoothly. No evidence of a pelvic mass. There is bilateral inguinal hernias contai agusto fat. There is colectomy with ileal rectal anastomosis. There is no mesenteric edema. No ascites or free air. There is loops of distal ileum that measure up to 5 cm. I do not suspect a bowel obstruction. The lumbar vertebrae have normal alignment. There is narrowing at the spaces from L3 to S1. There is degenerative spur formation. No compression fracture. The bony pelvis is intact. The hip joints are i ntact. Sacroiliac joints are intact. IMPRESSION: Previous surgery. No evidence of bowel obstruction. No free air. Minimal subsegmental atelectasis at the lung bases.
[2022-08-10] MEDS ORDERED: MORPHINE SULFATE 4 MG/ML SYRINGE IVP STA (06:07)
[2022-08-10] MEDS ORDERED: ONDANSETRON 4 MG ODT STARTER PACK 2 TAB BTL PO STA (06:32)
[2022-08-10] MEDS ORDERED: ACET/COD 300 MG/30 MG STARTER PACK 6 TAB BTL PO STA (06:32)
[2022-08-10 06:41] VITALS: BP 140/97; PULSE 78; RESP 16
== END 2022-08-10 06:39 | disposition home or self-care (01) ==
LOC: EC 04:14
DX: R10.13 Epigastric pain (principal); R10.84 Generalized abdominal pain; R11.2 Nausea with vomiting, unspecified; Z87.19 Personal history of other diseases of the digestive system; Z87.891 Personal history of nicotine dependence
CPT/HCPCS: 36415; 80053; 82150; 83605; 83690; 85025; 85610; 85730; 74177; 99284; 96374; 96375; 96376; 96361; J2270; J2405; S0119; C9113; Q9967

== ENCOUNTER 2023-12-19 16:34 | Inpatient (IN) | payer BC ==
[2023-12-19] MEDS ORDERED: PANTOPRAZOLE 40 MG/10 ML VIAL IVP STA (17:44)
[2023-12-19] MEDS ORDERED: ONDANSETRON 4 MG/2 ML VIAL IVP STA (17:44)
[2023-12-19] MEDS ORDERED: SODIUM CHLORIDE 0.9% 1,000 ML IV STA ×3 (17:44→19:43)
--- NOTE | 2023-12-19 18:21 | ED ---
Nausea/Vomiting/Diarrhea HPI - General Chief complaint: Nausea/Vomiting/Diarrhea Stated complaint: dehydration food poision Time Seen by Provider: 12/19/23 17:43 Source: patient, RN notes reviewed, old records reviewed Mode of arrival: ambulatory Limitations: no limitations - History of Present Illness Initial comments: This is a 4-year-old male to the emergency department for evaluation today. Today he is complaining of weakness lightheadedness dizziness fatigue with significant recent nausea vomiting and diarrhea. Patient is underlying history of Crohn's colitis with history of complete resection of the bowel. Patient does have history of dehydration similar symptoms that he is currently experiencing. Patient states he thought he would hopefully start to feel better with the symptoms are just progressively worsened. Patient denies any blood in his vomit or stool MD complaint: nausea, vomiting, diarrhea, abdominal pain -: days(s) Description of Vomiting: food contents, watery, bilious Description of Diarrhea: water, mucous Associated Abdominal Pain: Yes Location: diffuse Severity: severe Severity scale (1-10): 10 Quality: cramping, stabbing, aching, constant Consistency: constant Improves with: none Associated Symptoms: diaphoresis, nausea/vomiting, weakness - Related Data Home Medications Medication Instructions Recorded Confirmed Citalopram Hydrobromide 40 mg PO DAILY 11/16/19 12/19/23 [Citalopram HBr] Omeprazole Magnesium [PriLOSEC OTC] 20 mg PO DAILY 12/19/23 12/19/23 Risankizumab-Rzaa [Skyrizi On-Body] 360 mg SQ Q56D 12/19/23 12/19/23 Allergies Allergy/AdvReac Type Severity Reaction Status Date / Time No Known Allergies Allergy Verified 12/19/23 16:41 Review of Systems ROS Statement: Those systems with pertinent positive or pertinent negative responses have been documented in the HPI. ROS Other: All systems not noted in ROS Statement are negative. Past Medical History Additional Past Medical History / Comment(s): ulcerative colitis, crohns, prostate cancer , kidney stones History of Any Multi-Drug Resistant Organisms: None Reported Past Surgical History: Prostate Surgery Additional Past Surgical History / Comment(s): collectomy, ileoanal pouch Past Anesthesia/Blood Transfusion Reactions: No Reported Reaction Past Psychological History: No Psychological Hx Reported Smoking Status: Former smoker Past Alcohol Use History: None Reported Past Drug Use History: None Reported General Exam Limitations: no limitations General appearance: alert, in no apparent distress, anxious Head exam: Present: atraumatic, normocephalic, normal inspection Eye exam: Present: normal appearance, PERRL, EOMI. Absent: scleral icterus, conjunctival injection, periorbital swelling ENT exam: Present: normal exam, mucous membranes moist Neck exam: Present: normal inspection. Absent: tenderness, meningismus, lymphadenopathy Respiratory exam: Present: normal lung sounds bilaterally. Absent: respiratory distress, wheezes, rales, rhonchi, stridor Cardiovascular Exam: Present: regular rate, normal rhythm, tachycardia, normal heart sounds. Absent: systolic murmur, diastolic murmur, rubs, gallop, clicks GI/Abdominal exam: Present: soft, tenderness, guarding, normal bowel sounds. Absent: distended, rebound, rigid Extremities exam: Present: normal inspection, full ROM, normal capillary refill. Absent: tenderness, pedal edema, joint swelling, calf tenderness Back exam: Present: normal inspection Neurological exam: Present: alert, oriented X3, CN II-XII intact Psychiatric exam: Present: normal affect, normal mood Skin exam: Present: warm, dry, intact, normal color. Absent: rash Course Vital Signs 12/19/23 12/19/23 12/19/23 16:39 18:41 19:00 Temperature 98.7 F Pulse Rate 125 H 100 Respiratory 20 20 Rate Blood Pressure 98/62 135/92 140/97 O2 Sat by Pulse 99 98 Oximetry 12/19/23 12/19/23 12/19/23 20:11 20:26 21:00 Temperature Pulse Rate 97 101 H Respiratory 16 17 Rate Blood Pressure 139/103 137/100 142/95 O2 Sat by Pulse 94 L 94 L Oximetry 12/19/23 12/19/23 12/19/23 21:25 23:00 23:10 Temperature 98.0 F Pulse Rate 91 89 91 Respiratory 16 17 14 Rate Blood Pressure 141/96 136/103 134/93 O2 Sat by Pulse 94 L 94 L 95 Oximetry - Reevaluation(s) Reevaluation #1: 12/19/23 18:21 Records reviewed Reevaluation #2: 12/19/23 20:52 Patient symptoms are mildly improved Reevaluation #3: 12/19/23 20:52 Patient informed results and questions answered Reevaluation #4: 01/19/24 18:21 Was pt. sent in by a medical professional or institution (, [facility], [facility], urgent care, hospital, or [facility]...) When possible be specific @ -no Did you speak to anyone other than the patient for history (EMS, parent, family, police, friend...)? What history was obtained from this source @ -no Did you review nursing and triage notes (agree or disagree)? Why? @ -agree Are old charts reviewed (outside hosp., previous admission, EMS record, old EKG, old radiological studies, urgent care reports/EKG's, [facility] records)? Report findings @ -yes Differential Diagnosis (chest pain, altered mental status, abdominal pain women, abdominal pain men, vaginal bleeding, weakness, fever, dyspnea, syncope, headache, dizziness, GI bleed, back pain, seizure, CVA, palpatations, mental health, musculoskeletal)? @ -prior EKG interpreted by me (3pts min.). @ -yes X-rays interpreted by me (1pt min.). @ -no CT interpreted by me (1pt min.). @ -yes positive for colitis U/S interpreted by me (1pt. min.). @ -no What testing was considered but not performed or refused? (CT, X-rays, U/S, labs)? Why? @ -none What meds were considered but not given or refused? Why? @ -none Did you discuss the management of the patient with other professionals (professionals i.e. [facility] Marroquin, [facility], lab, RT, psych nurse, social service agency director, back feeder [employer] line, teacher, property officer, manager of case)? Give summary @ -no Was smoking cessation discussed for >3mins.? @ -no Was critical care preformed (if so, how long)? @ -no Were there social determinants of health that impacted care today? How? (Homelessness, low income, unemployed, alcoholism, drug addiction, transportation, low edu. Level, literacy, decrease access to med. care, snf, rehab)? @ -none Was there de-escalation of care discussed even if they declined (Discuss DNR or withdrawal of care, Hospice)? DNR status @ -no What co-morbidities impacted this encounter? (DM, HTN, Smoking, COPD, CAD, Cancer, CVA, ARF, Chemo, Hep., AIDS, mental health diagnosis, sleep apnea, morbid obesity)? @ -none Was patient admitted / discharged? Hospital course, mention meds given and route, prescriptions, significant lab abnormalities, going to OR and other pertinent info. @ - 58 male to the emergency department F for evaluation nausea vomiting diarrhea and abdominal pain. History of Crohn's colitis with bowel resection. This emergency diuresis severe abdominal pain with nausea vomiting renal failure. Patient will be admitted for right rehydration significant dehydration and hyperkalemia Admitted Undiagnosed new problem with uncertain prognosis? @ -no Drug Therapy requiring intensive monitoring for toxicity (Heparin, Nitro, Insulin, Cardizem)? @ -no Were any procedures done? @ -no Diagnosis/symptom? @ -Colitis,NVD,Weakness Acute, or Chronic, or Acute on Chronic? @ -Acute Uncomplicated (without systemic symptoms) or Complicated (systemic symptoms)? @ -Complicated Side effects of treatment? @ -no Exacerbation, Progression, or Severe Exacerbation? @ -exacerbation Poses a threat to life or bodily function? How? (Chest pain, USA, PA, pneumonia, PE, COPD, DKA, ARF, appy, cholecystitis, CVA, Diverticulitis, Homicidal, Suicidal, threat to staff... and all critical care pts) @ -Past with significant GI illness Reevaluation #5: 12/19/23 20:52 Differential Abdominal Pain Men: Appendicitis, cholecystitis, diverticulosis, ischemic bowel, pancreatitis, hepatitis, UTI, gastroenteritis, AAA, incarcerated hernia, bowel obstruction, constipation, inflammatory bowel, hepatitis, peptic ulcer disease, splenic infarction, perforated viscus, testicular torsion, this is not meant to be an all-inclusive list - Consultations Consultation #1: Spoke with Dr. magaña who agrees to admit the patient Medical Decision Making - Medical Decision Making 58 male to the emergency department F for evaluation nausea vomiting diarrhea and abdominal pain. History of Crohn's colitis with bowel resection. This emergency diuresis severe abdominal pain with nausea vomiting renal failure. Patient will be admitted for right rehydration significant dehydration and hyperkalemia - Lab Data Result diagrams: 12/21/23 11:05 12/21/23 11:05 Lab Results 12/19/23 12/19/23 12/19/23 Range/Units 18:29 18:29 18:29 WBC 10.7 H (3.8-10.6) k/uL RBC 6.78 H (4.30-5.90) m/uL Hgb 18.5 H (13.0-17.5) gm/dL Hct 56.0 H (39.0-53.0) % MCV 82.6 (80.0-100.0) fL MCH 27.2 (25.0-35.0) pg MCHC 33.0 (31.0-37.0) g/dL RDW 13.5 (11.5-15.5) % Plt Count 339 (150-450) k/uL MPV 9.0 Neutrophils % 67 % Lymphocytes % 19 % Monocytes % 11 % Eosinophils % 0 % Basophils % 1 % Neutrophils # 7.2 (1.3-7.7) k/uL Lymphocytes # 2.1 (1.0-4.8) k/uL Monocytes # 1.1 H (0-1.0) k/uL Eosinophils # 0.0 (0-0.7) k/uL Basophils # 0.1 (0-0.2) k/uL Sodium 132 L (137-145) mmol/L Potassium 5.8 H (3.5-5.1) mmol/L Chloride 94 L (98-107) mmol/L Carbon Dioxide 19 L (22-30) mmol/L Anion Gap 19 mmol/L BUN 80 H (9-20) mg/dL Creatinine 5.96 H (0.66-1.25) mg/dL Est GFR (CKD-EPI)AfAm 11 (>60 ml/min/1.73 sqM) Est GFR (CKD-EPI)NonAf 9 (>60 ml/min/1.73 sqM) Glucose 111 H (74-99) mg/dL Calcium 10.0 (8.4-10.2) mg/dL Total Bilirubin 0.5 (0.2-1.3) mg/dL AST 42 (17-59) U/L ALT 33 (4-49) U/L Alkaline Phosphatase 65 (38-126) U/L Total Protein 9.6 H (6.3-8.2) g/dL Albumin 5.4 H (3.5-5.0) g/dL Amylase 82 (30-110) U/L Lipase 134 (23-300) U/L Influenza Type A (PCR) Not Detected (Not Detectd) Influenza Type B (PCR) Not Detected (Not Detectd) RSV (PCR) Not Detected (Not Detectd) SARS-CoV-2 (PCR) Not Detected (Not Detectd) - Radiology Data Radiology results: report reviewed (CT abdomen pelvis is positive for significant colitis), image reviewed Disposition Clinical Impression: Dehydration, Colitis, Gastroenteritis, Nausea and vomiting, Hyperkalemia, Acute kidney failure Disposition: ADMITTED IP TO THIS [facility] Condition: Stable Is patient prescribed a controlled substance at d/c from ED?: No Time of Disposition: 20:50
[2023-12-19 19:29] LABS: ALT 33 U/L (4-49); AST 42 U/L (17-59); African American GFR (CKD) 11 (>60 ml/min/1.73 sqM); Albumin 5.4 g/dL (3.5-5.0); Alkaline Phosphatase 65 U/L (38-126); Amylase 82 U/L (30-110); Anion Gap 19 mmol/L; Blood Urea Nitrogen 80 mg/dL (9-20); Carbon Dioxide 19 mmol/L (22-30); Chloride 94 mmol/L (98-107); Glucose 111 mg/dL (74-99); Lipase 134 U/L (23-300); Non-African American GFR(CKD) 9 (>60 ml/min/1.73 sqM); Potassium 5.8 mmol/L (3.5-5.1); Sodium 132 mmol/L (137-145); Total Bilirubin 0.5 mg/dL (0.2-1.3); Total Protein 9.6 g/dL (6.3-8.2)
[2023-12-19] MEDS ORDERED: diphenhydrAMINE 50 MG/ML 1 ML VIAL IVP STA (19:43)
[2023-12-19] MEDS ORDERED: HYDROmorphone 1 MG/ML 1 ML SYRINGE IVP STA (19:43)
[2023-12-19] MEDS ORDERED: PROCHLORPERAZINE INJ 10 MG/2 ML VIAL IVP STA (19:43)
[2023-12-19 19:51] LABS: Basophils # (A) 0.1 k/uL (0-0.2); Basophils % (A) 1 %; Eosinophils % (A) 0 %; HGB 18.5 gm/dL (13.0-17.5); Lymphocytes # (A) 2.1 k/uL (1.0-4.8); Lymphocytes % (A) 19 %; MCH 27.2 pg (25.0-35.0); MCV 82.6 fL (80.0-100.0); Monocytes # (A) 1.1 k/uL (0-1.0); Monocytes % (A) 11 %; Neutrophils # (A) 7.2 k/uL (1.3-7.7); Neutrophils % (A) 67 %; Platelet Count 339 k/uL (150-450); RBC 6.78 m/uL (4.30-5.90); RDW 13.5 % (11.5-15.5); WBC 10.7 k/uL (3.8-10.6)
[2023-12-19] MEDS ORDERED: ONDANSETRON 4 MG/2 ML VIAL IVP PRN (20:49)
[2023-12-19] MEDS ORDERED: NALOXONE 0.4 MG/ML 1 ML VIAL IV PRN (20:49)
[2023-12-19] MEDS ORDERED: SODIUM BICARB 8.4% 50 ML SYR (1 MEQ/ML) IV STA (20:54)
[2023-12-19] MEDS ORDERED: INSULIN REGULAR 100 UNIT/ML VIAL (IV) IV ONE (20:54)
[2023-12-19] MEDS ORDERED: DEXTROSE 50% SYRINGE 50 ML IVP STA (20:54)
[2023-12-19] MEDS: SODIUM CHLORIDE 0.9% 1,000 ML IV SCH (21:13)
[2023-12-19 22:46] LABS: Appearance,Urine Clear (Clear); Bilirubin,Urine Negative (Negative); Blood,Urine Small (Negative); Color,Urine Colorless; Glucose,Urine (UA) 3+ (Negative); Ketones,Urine Negative (Negative); Leukocyte Esterase,Urine Negative (Negative); Mucus,Urine Rare /hpf; Nitrite,Urine Negative (Negative); Protein,Urine Negative (Negative); RBC,Urine <1 /hpf (0-5); Specific Gravity,Urine 1.009 (1.001-1.035); Urobilinogen,Urine <2.0 mg/dL (<2.0); WBC,Urine <1 /hpf (0-5)
--- NOTE | 2023-12-19 22:54 | CT ---
EXAMINATION TYPE: CT abdomen pelvis wo con DATE OF EXAM: 12/19/2023 HISTORY: pain, n/v. CT DLP: 677 mGycm. Automated Exposure Control for Dose Reduction was Utilized. TECHNIQUE: CT scan of the abdomen and pelvis is performed without oral or IV contrast. COMPARISON: Most recent prior CT August 10, 2022 FINDINGS: Within the limitations of a non-contrast study, the following observations are made. LUNG BASES: No significant abnormality is appreciated. LIVER/GB: No significant abnormality is appreciated. PANCREAS: No significant abnormality is seen. SPLEEN: No significant abnormality is seen. ADRENALS: No significant abnormality is seen. KIDNEYS: No renal stones or hydronephrosis is seen bilaterally. BOWEL: Surgical change of distal bowel loops in the pelvis redemonstrated. Slightly more prominent fl uid-filled small bowel loops at this level. Remainder of bowel shows no abnormal small or large bowel dilatation. GENITAL ORGANS: Prostate gland is surgically absent similar to prior. LYMPH NODES: No greater than 1cm abdominal or pelvic lymph nodes are appreciated. OSSEOUS STRUCTURES: Moderate disc space narrowing L4-L5 and L5-S1 levels. OTHER: Moderate to large sized fat-containing bilateral inguinal hernias are redemonstrated. IMPRESSION: No suspicious new or acute finding identified to account for patient's symptoms. Surgical change to the distal bowel in the pelvis again seen. Overall nonspecific but felt to be nonobstructi ve bowel gas pattern redemonstrated
--- NOTE | 2023-12-19 23:07 | P.HPIM ---
History of Present Illness H&P Date: 12/19/23 Patient is a 58-year-old male with a PMH of ulcerative colitis status post colectomy with ileoanal pouch, subsequently diagnosed Crohn's disease, who presents to the emergency room with complaints of vomiting and diarrhea. Patient notes he ate out on Friday night at a restaurant where he had large amount of pulled pork. On Friday morning he developed nausea with vomiting and watery diarrhea. Reports that the vomiting and diarrhea have persisted, with too many episodes to count, and that he has only been able to eat small meals earlier today which he is not sure he was able to keep down. Does report muscle cramps and some lightheadedness. Denies chest discomfort, shortness of breath, fever, chills, cough. CT abdomen and pelvis was unremarkable. Laboratory evaluation revealed BUN 80 (previously 13), creatinine 5.96 (previously 0.6), leukocytosis of 10.7, hemoglobin 18.5, sodium 132, potassium 5.8, glucose 111, with an unremarkable UA except 3+ ketones with viral respiratory panel negative. ED documentation reviewed and case discussed with ED provider. Review of systems: Pertinent positives and negatives as discussed in HPI, a complete review of systems was performed and all other systems are negative. Physical examination: Vital signs reviewed General: non toxic, no distress, appears at stated age, normal weight Derm: no unusual rashes/lesions, warm Head: atraumatic, normocephalic, symmetric Eyes: EOMI, no lid lag, anicteric sclera, pupils equal round reactive to light ENT: Nose and ears atraumatic Neck: No cervical lymphadenopathy, trachea midline, supple Mouth: no lip lesion, mucus membranes dry Cardiovascular: S1S2 reg, no murmur, positive dorsalis pedis pulse bilateral, no edema Lungs: CTA bilateral, no rhonchi, no rales, no accessory muscle use Abdominal: soft, nontender to palpation, no guarding Ext: muscle strength 5 out of 5 in all 4 extremities grossly, no gross muscle atrophy, no contractures, Neuro: CN II-XI grossly intact, no gross focal neuro deficits Psych: Alert, oriented, appropriate affect Assessment: Acute renal failure, likely due to severe dehydration from nausea and vomiting Nausea and vomiting, likely secondary to gastroenteritis Anion gap metabolic acidosis, likely starvation ketosis Hyperkalemia, likely secondary to ARF Hyponatremia, suspect due to persistent vomiting and diarrhea Imaging: CT abdomen and pelvis was unremarkable Data Review: Laboratory evaluation revealed BUN 80 (previously 13), creatinine 5.96 (previously 0.6), leukocytosis of 10.7, hemoglobin 18.5, sodium 132, potassium 5.8, glucose 111, with an unremarkable UA except 3+ ketones with viral respiratory panel negative. Plan: Continue with IV fluids normal saline 130 mL/h Nephrology consulted Antiemetics Continue Protonix NPO for now Initiate dextrose infusion DVT prophylaxis: Lovenox Subq The patient is admitted with an anticipated greater than 2 midnight stay for evaluation of ARF CODE STATUS: Full Code Discussed with: Patient Anticipated discharge place: Home Past Medical History Additional Past Medical History / Comment(s): ulcerative colitis, crohns, prostate cancer , kidney stones History of Any Multi-Drug Resistant Organisms: None Reported Past Surgical History: Prostate Surgery Additional Past Surgical History / Comment(s): collectomy, ileoanal pouch Past Anesthesia/Blood Transfusion Reactions: No Reported Reaction Past Psychological History: No Psychological Hx Reported Smoking Status: Former smoker Past Alcohol Use History: None Reported Past Drug Use History: None Reported Medications and Allergies Home Medications Medication Instructions Recorded Confirmed Type Citalopram Hydrobromide 40 mg PO DAILY 11/16/19 12/19/23 History [Citalopram HBr] Omeprazole Magnesium [PriLOSEC OTC] 20 mg PO DAILY 12/19/23 12/19/23 History Risankizumab-Rzaa [Skyrizi On-Body] 360 mg SQ Q56D 12/19/23 12/19/23 History Allergies Allergy/AdvReac Type Severity Reaction Status Date / Time No Known Allergies Allergy Verified 12/19/23 16:41 Physical Exam Vitals: Vital Signs Temp Pulse Resp BP Pulse Ox 12/19/23 23:00 89 17 136/103 94 L 12/19/23 21:25 91 16 141/96 94 L 12/19/23 21:00 101 H 17 142/95 94 L 12/19/23 20:26 97 16 137/100 94 L 12/19/23 20:11 139/103 12/19/23 19:00 140/97 12/19/23 18:41 100 20 135/92 98 12/19/23 16:39 98.7 F 125 H 20 98/62 99 Intake and Output 12/19/23 12/19/23 12/20/23 14:59 22:59 06:59 Other: Weight 90.718 kg Results CBC & Chem 7: 12/19/23 18:29 12/19/23 18:29 Labs: Abnormal Lab Results - Last 24 Hours (Table) 12/19/23 12/19/23 12/19/23 Range/Units 18:29 18:29 21:29 WBC 10.7 H (3.8-10.6) k/uL RBC 6.78 H (4.30-5.90) m/uL Hgb 18.5 H (13.0-17.5) gm/dL Hct 56.0 H (39.0-53.0) % Monocytes # 1.1 H (0-1.0) k/uL Sodium 132 L (137-145) mmol/L Potassium 5.8 H (3.5-5.1) mmol/L Chloride 94 L (98-107) mmol/L Carbon Dioxide 19 L (22-30) mmol/L BUN 80 H (9-20) mg/dL Creatinine 5.96 H (0.66-1.25) mg/dL Glucose 111 H (74-99) mg/dL Total Protein 9.6 H (6.3-8.2) g/dL Albumin 5.4 H (3.5-5.0) g/dL Urine Glucose (UA) 3+ H (Negative) Urine Blood Small H (Negative) Urine Mucus Rare H (None) /hpf
[2023-12-19] MEDS ORDERED: DEXTROSE 5%-0.9% NACL 1,000 ML IV SCH (23:45)
[2023-12-20] MEDS: HYDROmorphone 1 MG/ML 1 ML SYRINGE IVP PRN ×5 (02:12→22:25)
[2023-12-20] MEDS ORDERED: CALCIUM GLUCONATE IN NACL 1 GM in SALINE 1 100ML.BAG IVPB ONE (04:00)
[2023-12-20] MEDS: SODIUM CHLORIDE 0.9% 1,000 ML IV SCH ×3 (08:01→14:20)
[2023-12-20] MEDS: ENOXAPARIN 40 MG/0.4 ML SYRINGE SQ SCH (08:50)
[2023-12-20] MEDS: PANTOPRAZOLE 40 MG/10 ML VIAL IV SCH (08:50)
--- NOTE | 2023-12-20 11:04 | P.PN ---
Subjective Progress Note Date: 12/20/23 Patient is a 58-year-old male with a PMH of ulcerative colitis status post colectomy with ileoanal pouch, subsequently diagnosed Crohn's disease, who presents to the emergency room with complaints of vomiting and diarrhea. Patient notes he ate out on Friday night at a restaurant where he had large amount of pulled pork. On Friday morning he developed nausea with vomiting and watery diarrhea. Reports that the vomiting and diarrhea have persisted, with too many episodes to count, and that he has only been able to eat small meals earlier today which he is not sure he was able to keep down. Does report muscle cramps and some lightheadedness. CT AP was unremarkable. Laboratory evaluation revealed BUN 80 (previously 13), creatinine 5.96 (previously 0.6), leukocytosis of 10.7, hemoglobin 18.5, sodium 132, potassium 5.8, glucose 111, with an unremarkable UA except 3+ ketones with viral respiratory panel negative. Patient was treated with insulin IV, Ca gluconate, sodium bicarb for treatment of hyperkalemia. He was given 3L NS bolus and admitted for further management. 12/20 Patient was seen and examined. Continues to have profuse watery output from ostomy. No vomiting today. CBC, CMP, Mag, Phos, C. diff pending at the time of this note. General: non toxic, no distress, appears at stated age, normal weight Derm: no unusual rashes/lesions, warm Head: atraumatic, normocephalic, symmetric Eyes: EOMI, no lid lag, anicteric sclera ENT: Nose and ears atraumatic Neck: No cervical lymphadenopathy, trachea midline, supple Mouth: no lip lesion, mucus membranes dry Cardiovascular: S1S2 reg, no murmur Lungs: CTA bilateral, no rhonchi, no rales, no accessory muscle use Ext: muscle strength 5 out of 5 in all 4 extremities grossly, no gross muscle atrophy, no contractures, Neuro: no gross focal neuro deficits Psych: Alert, oriented, appropriate affect Based on my assessment of this patient, this patient meets a moderate complexity level of care. Patient has an acute diagnosis of acute renal failure in the setting of severe dehydration that poses a threat to life or bodily function. Acute renal failure: Likely due to severe dehydration from nausea and vomiting. CT AP shows no hydronephrosis. Continue NS at 130 cc/hr. Nephrology consult. Nausea and vomiting: Likely secondary to gastroenteritis. Zofran 4 mg IV Q8H PRN for N/V. Anion gap metabolic acidosis: Likely starvation ketosis. Hopeful resolution with IV hydration. Hyperkalemia: Likely secondary to ARF. Treated as above. Hyponatremia: Suspect due to persistent vomiting and diarrhea. Hopeful resolution with IV hydration. CODE STATUS: FULL CODE. DVT Prophylaxis: Lovenox SQ GI Prophylaxis: Protonix IV Designated medical POA if patient is not able to make medical decisions for themselves: I have reviewed the following dynamics ax consultant notes: I have reviewed the results of the following tests: I have ordered the following tests: Pending: CBC, CMP, Mag, Phos, C. diff Daily BMP ordered. I have discussed the care of this patient with the following independent historian: I have independently interpreted the following test below: I have discussed the management of this patient with the following physician: Objective - Vital Signs Vital signs: Vital Signs Temp 97.5 F L 12/20/23 07:10 Pulse 80 12/20/23 07:10 Resp 20 12/20/23 07:10 BP 106/70 12/20/23 07:10 Pulse Ox 94 L 12/20/23 07:10 FiO2 Intake & Output 12/19/23 12/20/23 12/20/23 18:59 06:59 18:59 Weight 90.718 kg 90.718 kg Other: # Voids 1 - Labs CBC & Chem 7: 12/19/23 18:29 12/19/23 18:29 Labs: Abnormal Lab Results - Last 24 Hours (Table) 12/19/23 12/19/23 12/19/23 Range/Units 18:29 18:29 21:29 WBC 10.7 H (3.8-10.6) k/uL RBC 6.78 H (4.30-5.90) m/uL Hgb 18.5 H (13.0-17.5) gm/dL Hct 56.0 H (39.0-53.0) % Monocytes # 1.1 H (0-1.0) k/uL Sodium 132 L (137-145) mmol/L Potassium 5.8 H (3.5-5.1) mmol/L Chloride 94 L (98-107) mmol/L Carbon Dioxide 19 L (22-30) mmol/L BUN 80 H (9-20) mg/dL Creatinine 5.96 H (0.66-1.25) mg/dL Glucose 111 H (74-99) mg/dL Total Protein 9.6 H (6.3-8.2) g/dL Albumin 5.4 H (3.5-5.0) g/dL Urine Glucose (UA) 3+ H (Negative) Urine Blood Small H (Negative) Urine Mucus Rare H (None) /hpf
--- NOTE | 2023-12-20 11:31 | P.NPCON ---
History of Present Illness - Reason for Consult acute renal failure - History of Present Illness Reason for consultation: Acute kidney injury History of present illness: Patient is a 58-year-old male seen in consultation for acute kidney injury. Patient's creatinine in August 2022 was near 1 and elevated at 5.96 this admission. Patient denies any personal history of kidney disease. Patient has history of Crohn's disease and states he had large bowel resection in the past. Patient came to the hospital due to generalized weakness along with nausea vomiting and diarrhea going on since Friday. Patient states he was on a business trip in [place] where the symptoms started. Oral intake is in poor the last 2-3 days. He denies use of nonsteroidals. No history of diabetes. No history of coronary artery disease. Denies family history of renal disease. Denies gross hematuria or dysuria. Patient received 2 L of normal saline bolus on admission and is currently maintained on normal saline at 1 30 mL an hour. No edema. Denies chest pain or shortness of breath. Vital signs are stable. General: No acute distress. HEENT: Head exam is unremarkable. LUNGS: No audible rhonchi or wheezes. HEART: Rate and Rhythm are regular. ABDOMEN: Nontender. EXTREMITITES: No edema. Past Medical History Additional Past Medical History / Comment(s): ulcerative colitis, crohns, prostate cancer , kidney stones History of Any Multi-Drug Resistant Organisms: None Reported Past Surgical History: Prostate Surgery Additional Past Surgical History / Comment(s): collectomy, ileoanal pouch Past Anesthesia/Blood Transfusion Reactions: No Reported Reaction Past Psychological History: No Psychological Hx Reported Smoking Status: Former smoker Past Alcohol Use History: None Reported Past Drug Use History: None Reported Medications and Allergies Home Medications Medication Instructions Recorded Confirmed Type Citalopram Hydrobromide 40 mg PO DAILY 11/16/19 12/19/23 History [Citalopram HBr] Omeprazole Magnesium [PriLOSEC OTC] 20 mg PO DAILY 12/19/23 12/19/23 History Risankizumab-Rzaa [Skyrizi On-Body] 360 mg SQ Q56D 12/19/23 12/19/23 History Allergies Allergy/AdvReac Type Severity Reaction Status Date / Time No Known Allergies Allergy Verified 12/19/23 16:41 Physical Exam Vitals: Vital Signs Temp Pulse Pulse Resp BP BP Pulse Ox 12/20/23 07:10 97.5 F L 80 20 106/70 94 L 12/20/23 01:44 98.5 F 94 20 140/99 96 12/19/23 23:10 98.0 F 91 14 134/93 95 12/19/23 23:00 89 17 136/103 94 L 12/19/23 21:25 91 16 141/96 94 L 12/19/23 21:00 101 H 17 142/95 94 L 12/19/23 20:26 97 16 137/100 94 L 12/19/23 20:11 139/103 12/19/23 19:00 140/97 12/19/23 18:41 100 20 135/92 98 12/19/23 16:39 98.7 F 125 H 20 98/62 99 Intake and Output 12/19/23 12/20/23 12/20/23 22:59 06:59 14:59 Other: # Voids 1 Weight 90.718 kg 90.718 kg Results - Lab Results Most recent lab results Calcium 10.0 mg/dL (8.4-10.2) 12/19/23 18:29 12/19/23 18:29 12/19/23 18:29 Assessment and Plan Plan: Assessment: 1. Acute kidney injury secondary to vasomotor nephropathy from hy povolemia.Creatinine 5.96 on admission. creatinine near and August 2022. UA benign. No hydronephrosis noted on CAT scan. 2. Hypovolemic hyponatremia. 3. Hyperkalemia secondary to acute kidney injury and metabolic acidosis. 4. Metabolic acidosis secondary to acute kidney injury and GI losses. 5. History of Crohn's disease status post large bowel resection. 6. Nausea vomiting and diarrhea possibly gastroneuritis. No acute changes noted on CAT scan. Plan: Maintain normal saline at 100 mL an hour. Follow-up morning labs. Avoid nephrotoxins. Thank you for the consultation. I will continue to follow the patient with you during his hospital stay.
[2023-12-20 12:27] VITALS: RESP 18
[2023-12-20 12:41] LABS: ALT 23 U/L (10-49); AST 28 U/L (14-35); Albumin 3.8 g/dL (3.8-4.9); Albumin/Globulin Ratio 1.46 Ratio (1.60-3.17); Alkaline Phosphatase 48 U/L (41-126); BUN/Creat Ratio 21.84 Ratio (12.00-20.00); Blood Urea Nitrogen 54.6 mg/dL (9.0-27.0); Calcium 9.1 mg/dL (8.7-10.3); Carbon Dioxide 19.3 mmol/L (21.6-31.8); Chloride 100 mmol/L (96-109); Globulin 2.6 g/dL (1.6-3.3); Glucose 111 mg/dL (70-110); Magnesium 1.8 mg/dL (1.5-2.4); Phosphorus 4.8 mg/dL (2.4-5.1); Sodium 134 mmol/L (135-145); Total Bilirubin 0.5 mg/dL (0.3-1.2); Total Protein 6.4 g/dL (6.2-8.2)
[2023-12-20 12:45] LABS: HCT 45.6 % (39.6-50.0); HGB 14.6 g/dL (13.0-17.0); MCH 25.6 pg (27.0-32.0); Mean Platelet Volume 10.8 FL (9.5-12.2); NRBC Per 100 WBC 0 X 10*3/uL (0.00-0.01); Platelet Count 348 X 10*3/uL (140-440); RDW 13.7 % (11.5-14.5); WBC 9.14 X 10*3/uL (4.50-10.00)
[2023-12-20 13:17] LABS: Basophils # (A) 0.03 X 10*3/uL (0.00-0.10); Basophils % (A) 0.3 %; Eosinophils % (A) 1.1 %; Lymphocytes % (A) 28.4 %; Monocytes # (A) 1.77 X 10*3/uL (0.20-1.00); Monocytes % (A) 19.4 %; Neutrophils # (A) 4.59 X 10*3/uL (1.80-7.70); Neutrophils % (A) 50.3 %
[2023-12-21] MEDS: SODIUM CHLORIDE 0.9% 1,000 ML IV SCH ×2 (01:46→08:35)
[2023-12-21] MEDS: HYDROmorphone 1 MG/ML 1 ML SYRINGE IVP PRN ×2 (03:28→08:32)
[2023-12-21] MEDS: ENOXAPARIN 40 MG/0.4 ML SYRINGE SQ SCH (08:30)
[2023-12-21] MEDS: PANTOPRAZOLE 40 MG/10 ML VIAL IV SCH (08:30)
--- NOTE | 2023-12-21 11:04 | P.PN ---
Subjective Patient is seen in follow for acute kidney injury. Renal function improving. Morning labs pending. No vomiting or diarrhea. Oral intake is good. On IV fluids. Vital signs are stable. General: No acute distress. HEENT: Head exam is unremarkable. LUNGS: No audible rhonchi or wheezes. HEART: Rate and Rhythm are regular. ABDOMEN: Nontender. EXTREMITITES: No edema. Objective - Vital Signs Vital signs: Vital Signs Temp 97.7 F 12/21/23 07:14 Pulse 64 12/21/23 07:14 Resp 18 12/21/23 07:14 BP 108/70 12/21/23 07:14 Pulse Ox 96 12/21/23 07:14 FiO2 Intake & Output 12/20/23 12/21/23 12/21/23 18:59 06:59 18:59 Other: Voiding Method Toilet # Voids 1 2 - Labs CBC & Chem 7: 12/20/23 06:16 12/20/23 06:16 Labs: Abnormal Lab Results - Last 24 Hours (Table) 12/20/23 12/20/23 Range/Units 06:16 06:16 RBC 5.70 H (4.40-5.60) X 10*6/uL MCH 25.6 L (27.0-32.0) pg Immature Gran # 0.05 H (0.00-0.04) X 10*3/uL Monocytes # 1.77 H (0.20-1.00) X 10*3/uL Sodium 134 L (135-145) mmol/L Carbon Dioxide 19.3 L (21.6-31.8) mmol/L Anion Gap 14.70 H (4.00-12.00) mmol/L BUN 54.6 H (9.0-27.0) mg/dL Creatinine 2.5 H (0.6-1.5) mg/dL Est GFR (CKD-EPI) 29 L (>=60) BUN/Creatinine Ratio 21.84 H (12.00-20.00) Ratio Glucose 111 H (70-110) mg/dL Albumin/Globulin Ratio 1.46 L (1.60-3.17) Ratio Assessment and Plan Plan: Assessment: 1. Acute kidney injury secondary to vasomotor nephropathy from hypovolemia.Creatinine 5.96 on admission - 2.5 yesterday. Creatinine near and August 2022. UA benign. No hydronephrosis noted on CAT scan. 2. Hypovolemic hyponatremia. Better. 3. Hyperkalemia secondary to acute kidney injury and metabolic acidosis. Better. 4. Metabolic acidosis secondary to acute kidney injury and GI losses. 5. History of Crohn's disease status post large bowel resection. 6. Nausea vomiting and diarrhea possibly gastroneuritis. No acute changes noted on CAT scan. Plan: Maintain normal saline at 100 mL an hour. Follow-up morning labs. Avoid nephrotoxins. Potential discharge if renal function continues to improve. Follow up outpatient in 1 week post discharge.
--- NOTE | 2023-12-21 11:07 | P.DS ---
Providers Date of admission: 12/19/23 20:50 Expected date of discharge: 12/21/23 Attending physician: Neisha Wright MD Consults: 12/19/23 20:49 Consult Physician Routine Consulting Provider: Ryan Zambrano Consult Reason/Comments: nuria,arf Do you want consulting provider notified?: Yes Primary care physician: [facility] Course: Patient is a 58-year-old male with a PMH of ulcerative colitis status post colectomy with ileoanal pouch, subsequently diagnosed Crohn's disease, who presents to the emergency room with complaints of vomiting and diarrhea. Patient notes he ate out on Friday night at a restaurant where he had large amount of pulled pork. On Friday morning he developed nausea with vomiting and watery diarrhea. Reports that the vomiting and diarrhea have persisted, with too many episodes to count, and that he has only been able to eat small meals earlier today which he is not sure he was able to keep down. Does report muscle cramps and some lightheadedness. CT AP was unremarkable. Laboratory evaluation revealed BUN 80 (previously 13), creatinine 5.96 (previously 0.6), leukocytosis of 10.7, hemoglobin 18.5, sodium 132, potassium 5.8, glucose 111, with an unremarkable UA except 3+ ketones with viral respiratory panel negative. Patient was treated with insulin IV, Ca gluconate, sodium bicarb for treatment of hyperkalemia. He was given 3L NS bolus and admitted for further management. 12/20 Patient was seen and examined. Continues to have profuse watery output from ostomy. No vomiting today. CBC RBC 5.7. CMP Na 134, bicarb 19.3, anion gap 14.7, BUN 54.6, Cr 2.5, glu 111. 12/21 Patient was seen and examined. Feeling much better today. Stool consistency from ostomy at baseline. No nausea or vomiting. Would like to go home. Discussed with Dr. Zambrano, plans for discharge home today if renal function is improved. Patient encouraged hydration by mouth. Advised to repeat BMP in 3 days to be followed up with PCP. General: non toxic, no distress, appears at stated age, normal weight Derm: no unusual rashes/lesions, warm Head: atraumatic, normocephalic, symmetric Eyes: EOMI, no lid lag, anicteric sclera ENT: Nose and ears atraumatic Neck: No cervical lymphadenopathy, trachea midline, supple Mouth: no lip lesion, mucus membranes dry Cardiovascular: S1S2 reg, no murmur Lungs: CTA bilateral, no rhonchi, no rales, no accessory muscle use Ext: muscle strength 5 out of 5 in all 4 extremities grossly, no gross muscle atrophy, no contractures, Neuro: no gross focal neuro deficits Psych: Alert, oriented, appropriate affect Discharge Diagnosis: Acute kidney injury Nausea and vomiting Diarrhea Anion gap metabolic acidosis Hyperkalemia Hyponatremia This complex discharge took 35 minutes to complete. Patient Condition at Discharge: Stable Plan - Discharge Summary Discharge Rx Participant: No New Discharge Prescriptions: No Action Citalopram Hydrobromide [Citalopram HBr] 40 mg PO DAILY Omeprazole Magnesium [PriLOSEC OTC] 20 mg PO DAILY Risankizumab-Rzaa [Skyrizi On-Body] 360 mg SQ Q56D Discharge Medication List Citalopram Hydrobromide [Citalopram HBr] 40 mg PO DAILY 11/16/19 [History] Omeprazole Magnesium [PriLOSEC OTC] 20 mg PO DAILY 12/19/23 [History] Risankizumab-Rzaa [Skyrizi On-Body] 360 mg SQ Q56D 12/19/23 [History] Follow up Appointment(s)/Referral(s): Sergey Handy MD [Primary Care Provider] - 1-2 days
[2023-12-21 11:27] LABS: Basophils # (A) 0.1 k/uL (0-0.2); Basophils % (A) 1 %; Eosinophils # (A) 0.2 k/uL (0-0.7); Eosinophils % (A) 3 %; HCT 40.5 % (39.0-53.0); Lymphocytes # (A) 1.9 k/uL (1.0-4.8); Lymphocytes % (A) 33 %; MCH 27.3 pg (25.0-35.0); MCV 82.9 fL (80.0-100.0); Mean Platelet Volume 8.1; Monocytes # (A) 0.6 k/uL (0-1.0); Monocytes % (A) 10 %; Neutrophils % (A) 50 %; Platelet Count 279 k/uL (150-450); RBC 4.88 m/uL (4.30-5.90); RDW 13.5 % (11.5-15.5); WBC 5.9 k/uL (3.8-10.6)
[2023-12-21 11:39] LABS: HGB 13.4 gm/dL (13.0-17.5)
[2023-12-21 11:40] LABS: African American GFR (CKD) >90 (>60 ml/min/1.73 sqM); Anion Gap 3 mmol/L; Blood Urea Nitrogen 20 mg/dL (9-20); Calcium 8.4 mg/dL (8.4-10.2); Carbon Dioxide 22 mmol/L (22-30); Chloride 112 mmol/L (98-107); Glucose 114 mg/dL (74-99); Non-African American GFR(CKD) >90 (>60 ml/min/1.73 sqM); Potassium 4.2 mmol/L (3.5-5.1); Sodium 137 mmol/L (137-145)
[2023-12-21 12:39] VITALS: BP 100/62; PULSE 68; TEMP 98.5
== END 2023-12-21 12:41 | disposition home or self-care (01) | DRG 640 ==
LOC: EC 16:34 → 5NMEDONC 20:50
PROVIDERS: ADMIT Internal Medicine; ATTEND Internal Medicine
DX: E86.1 Hypovolemia (principal); N17.0 Acute kidney failure with tubular necrosis; K50.10 Crohn's disease of large intestine without complications; K52.9 Noninfective gastroenteritis and colitis, unspecified; E87.20 Acidosis, unspecified; E87.1 Hypo-osmolality and hyponatremia; E86.0 Dehydration; E87.5 Hyperkalemia; Z85.46 Personal history of malignant neoplasm of prostate; Z90.49 Acquired absence of other specified parts of digestive tract; Z79.899 Other long term (current) drug therapy; Z87.891 Personal history of nicotine dependence; Z11.52 Encounter for screening for COVID-19; Z98.0 Intestinal bypass and anastomosis status; Z87.19 Personal history of other diseases of the digestive system
CPT/HCPCS: 36415; 74176; 80048; 80053; 81001; 82150; 83690; 83735; 84100; 85025; 87324; 87636; 96361; 96374; 96375; 99285

== ENCOUNTER → 2024-04-13 | Outpatient (CLI) | payer BC ==
[2024-04-13 18:35] LABS: Basophils # (A) 0.09 X 10*3/uL (0.00-0.10); Basophils % (A) 1.3 %; Eosinophils # (A) 0.18 X 10*3/uL (0.04-0.35); Eosinophils % (A) 2.7 %; HCT 44.2 % (39.6-50.0); HGB 13.3 g/dL (13.0-17.0); Lymphocytes # (A) 1.89 X 10*3/uL (0.90-5.00); Lymphocytes % (A) 27.8 %; MCH 23.3 pg (27.0-32.0); MCHC 30.1 g/dL (32.0-37.0); MCV 77.5 FL (80.0-97.0); Mean Platelet Volume 10.7 FL (9.5-12.2); Monocytes # (A) 0.61 X 10*3/uL (0.20-1.00); NRBC Per 100 WBC 0 X 10*3/uL (0.00-0.01); Neutrophils % (A) 58.9 %; Platelet Count 383 X 10*3/uL (140-440); RDW 16.3 % (11.5-14.5); WBC 6.79 X 10*3/uL (4.50-10.00)
[2024-04-13 19:24] LABS: ALT 27 U/L (10-49); AST 33 U/L (14-35); Albumin 4.6 g/dL (3.8-4.9); Albumin/Globulin Ratio 1.53 Ratio (1.60-3.17); Alkaline Phosphatase 64 U/L (41-126); BUN/Creat Ratio 15.22 Ratio (12.00-20.00); Blood Urea Nitrogen 13.7 mg/dL (9.0-27.0); Calcium 10.3 mg/dL (8.7-10.3); Carbon Dioxide 24.3 mmol/L (21.6-31.8); Chloride 104 mmol/L (96-109); Glucose 107 mg/dL (70-110); Potassium 5.3 mmol/L (3.5-5.5); Sodium 141 mmol/L (135-145); Total Bilirubin 0.7 mg/dL (0.3-1.2); Total Protein 7.6 g/dL (6.2-8.2)
== END | disposition home or self-care (01) ==
LOC: LABWHC1 13:24
PROVIDERS: ATTEND Internal Medicine Gastroenterology
DX: K51.90 Ulcerative colitis, unspecified, without complications (principal)
CPT/HCPCS: 36415; 80053; 85025